=== PATIENT | female | born 1980 | race Caucasian/White ===

== ENCOUNTER 2018-11-04 09:35 | Inpatient (IN) ==
[2018-11-05] MEDS ORDERED: DESYREL PO PRN (10:49)
[2018-11-05] MEDS ORDERED: ZOFRAN ODT PO PRN (10:49)
[2018-11-05] MEDS ORDERED: NICOTINE GUM BUCCAL PRN (10:49)
[2018-11-05] MEDS ORDERED: IMODIUM PO PRN ×2 (10:49)
[2018-11-05] MEDS ORDERED: DULCOLAX PR PRN (10:49)
[2018-11-05] MEDS ORDERED: ZOFRAN IV PRN (10:49)
[2018-11-05] MEDS ORDERED: D5W 1,000 ML IV PRN (10:49)
[2018-11-05] MEDS ORDERED: TUBERSOL ID ONE (10:49)
[2018-11-05] MEDS ORDERED: MAALOX PLUS LIQUID PO PRN (10:49)
[2018-11-05] MEDS ORDERED: PHENOBARBITAL IV PRN (10:49)
[2018-11-05] MEDS ORDERED: ZOFRAN IM PRN (10:49)
[2018-11-05 10:58] LABS: URINE SOURCE CLEAN CATCH
[2018-11-05 11:05] LABS: BILIRUBIN URINE NEGATIVE (NEGATIVE); BLOOD URINE 1+ (NEGATIVE); GLUCOSE URINE NEGATIVE (NEGATIVE); KETONE URINE NEGATIVE (NEGATIVE); LEUKOCYTES URINE TRACE (NEGATIVE); NITRITE URINE NEGATIVE (NEGATIVE); PH URINE 6.5; PROTEIN URINE TRACE mg/dL (NEGATIVE); UROBILINOGEN URINE NORMAL
[2018-11-05 11:06] LABS: CLARITY CLEAR (CLEAR); COLOR YELLOW; URINE BACTERIA 1+ /HFP; URINE CAST NONE SEEN /LPF; URINE CRYSTAL NONE SEEN /HPF; URINE EPITHELIAL CELLS <10 /HPF (<10); URINE RBC <10 /HPF (<10); URINE WBC <10 /HPF (<10); URINE YEAST NONE SEEN /HPF
[2018-11-05 11:13] LABS: UR AMPHETAMINES QUAL PRESUMPTIVE POSITIVE (NONE DETECT); UR BARBITUATES QUAL NONE DETECTED (NONE DETECT); UR BENZODIAZEPIN QUAL NONE DETECTED (NONE DETECT); UR COCAINE QUAL NONE DETECTED (NONE DETECT); UR METHADONE QUAL NONE DETECTED (NONE DETECT); UR METHAMPHETAMINE QUAL PRESUMPTIVE POSITIVE (NONE DETECT); UR OPIATES QUAL PRESUMPTIVE POSITIVE (NONE DETECT); UR OXYCODONE QUAL NONE DETECTED (NONE DETECT); UR PCP QUAL NONE DETECTED (NONE DETECT)
[2018-11-05 11:14] LABS: UR CANNABINOIDS QUAL PRESUMPTIVE POSITIVE (NONE DETECT); UR PROPOXYPHENE QUAL NONE DETECTED (NONE DETECT); UR TCA QUAL NONE DETECTED (NONE DETECT)
[2018-11-05 11:29] LABS: HEMATOCRIT 34.7 % (37.0-47.0); HEMOGLOBIN 11.5 g/dL (12.0-16.0); MCH 29.5 PG (27-31); MCHC 33.1 g/dL (33-37); MPV 8.7 FL (7.4-10.4); RBC 3.9 XMIL (4.2-5.4); RDW 12.7 % (11.5-14.5); WBC 4.7 X1000 (4.8-10.8)
[2018-11-05] MEDS: MOTRIN PO PRN ×2 (11:30→17:06)
[2018-11-05] MEDS: NICODERM PATCH TD PRN (11:30)
[2018-11-05 11:46] LABS: INR 0.98; PROTIME 13.5 Seconds (11.0-16.0)
[2018-11-05 11:50] LABS: AGAP 10; ALBUMIN 3.7 g/dL (3.5-5.0); ALKALINE PHOSPHATASE 50 U/L (32-104); AMYLASE 33 U/L (20-200); BUN 11 mg/dL (8-22); CALCIUM 8.3 mg/dL (8.8-10.2); CHLORIDE 106 mmol/L (98-107); COSMO 280; CREATININE 0.6 mg/dL (0.5-0.9); ESTIMATED GFR > 60; GLUCOSE 112 mg/dL (70-104); GOT 9 U/L (10-30); GPT 7 U/L (10-36); LIPASE 16 U/L (13-60); SODIUM 140 mmol/L (136-145); TCO2 23 mmol/L (25-35); TOTAL BILIRUBIN < 0.15 mg/dL (0.20-1.00)
[2018-11-05] MEDS ORDERED: SINEMET 25/100 PO PRN (12:11)
[2018-11-05] MEDS ORDERED: BENTYL PO PRN (12:11)
[2018-11-05] MEDS: TRILEPTAL PO SCH ×2 (12:41→17:06)
[2018-11-05] MEDS: NEURONTIN PO SCH ×2 (12:41→17:06)
[2018-11-05] MEDS: ATARAX PO PRN (17:06)
[2018-11-05] MEDS: LIBRIUM PO PRN ×2 (17:06→22:38)
[2018-11-05] MEDS: ROBAXIN PO PRN (17:06)
[2018-11-05] MEDS: TYLENOL PO PRN (22:38)
[2018-11-05] MEDS: SEROQUEL PO PRN (22:38)
[2018-11-06] MEDS: LIBRIUM PO PRN (05:13)
[2018-11-06] MEDS: MOTRIN PO PRN ×2 (05:13→11:56)
[2018-11-06] MEDS: PROTONIX PO SCH (06:31)
[2018-11-06] MEDS: SUBOXONE 2 MG/0.5 MG FILM SL SCH ×2 (08:57→19:52)
[2018-11-06] MEDS: THERA M PLUS PO SCH (08:57)
[2018-11-06] MEDS: NEURONTIN PO SCH ×3 (08:57→17:23)
[2018-11-06] MEDS: TRILEPTAL PO SCH ×2 (08:57→12:54)
[2018-11-06] MEDS: VITAMIN B-1 PO SCH (08:57)
[2018-11-06] MEDS: FOLIC ACID PO SCH (08:58)
[2018-11-06] MEDS ORDERED: FLU VACCINE IM ONE (09:00)
[2018-11-06] MEDS: TYLENOL PO PRN ×2 (09:10→17:23)
[2018-11-06] MEDS: ROBAXIN PO PRN ×2 (11:56→17:25)
[2018-11-06] MEDS: NICODERM PATCH TD PRN (12:54)
[2018-11-06] MEDS: SENOKOT PO PRN (21:39)
--- NOTE | 2018-11-06 23:12 | PROGRESS NOTE ---
DATE: 11/06/2018 SUBJECTIVE: The patient notes overall she is feeling a little bit better; however, she has still been sleepy and fatigued. She is unsure why. The patient actually states that she has not taken her seizure medicine since June. OBJECTIVE: Vital signs reviewed. She is awake but somnolent. HEENT: Normocephalic. Neck supple. CV: Regular rate. Chest clear. Abdomen soft. Extremities: Moves all extremities. ASSESSMENT: 1. Increased somnolence, likely secondary to her seizure medication, as she has not been taking on any regular basis since June. 2. Nausea and vomiting. 3. Abdominal pain. 4. [*] stabilization. PLAN: We will continue the patient in the hospital. Continue Suboxone; however, we will hold her seizure medicines as she has not been taking them on any regular basis and it is likely the cause of her drowsiness. cc: Dheeraj Madrigal MD
[2018-11-07] MEDS: MOTRIN PO PRN ×3 (03:22→19:09)
[2018-11-07] MEDS: PROTONIX PO SCH (06:14)
[2018-11-07] MEDS: NEURONTIN PO SCH ×4 (07:55→20:17)
[2018-11-07] MEDS: FOLIC ACID PO SCH ×2 (07:55→08:03)
[2018-11-07] MEDS: THERA M PLUS PO SCH ×2 (07:55→08:03)
[2018-11-07] MEDS: SUBOXONE 2 MG/0.5 MG FILM SL SCH (07:55)
[2018-11-07] MEDS: LIBRIUM PO PRN (07:55)
[2018-11-07] MEDS: VITAMIN B-1 PO SCH ×2 (07:55→11:17)
[2018-11-07] MEDS: ROBAXIN PO PRN (11:18)
[2018-11-07] MEDS: NICODERM PATCH TD PRN (11:51)
[2018-11-07] MEDS: TYLENOL PO PRN (15:04)
[2018-11-07] MEDS: SENOKOT PO PRN (15:08)
[2018-11-07] MEDS: ATARAX PO PRN (19:09)
[2018-11-07] MEDS: SEROQUEL PO PRN (20:57)
[2018-11-07] MEDS: SUBOXONE 8 MG/2 MG FILM SL SCH (20:57)
--- NOTE | 2018-11-07 21:48 | PROGRESS NOTE ---
DATE: 11/07/2018 SUBJECTIVE: Patient notes that she is feeling okay, but is still having some muscle aches. Notes that Suboxone is working, but it is not lasting long enough. PHYSICAL EXAMINATION: Vital Signs: Temperature 98, respiratory rate 18, BP 103/51. General: Patient is in no current respiratory distress. Very pleasant to talk with. HEENT: Normocephalic. Neck: Supple. Cardiovascular: Regular rate. Chest: Clear. Abdomen: Soft. Extremities: Moves all extremities. ASSESSMENT: 1. Nausea/vomiting. 2. Abdominal pain. 3. Myalgias. 4. Paresthesias. 5. Paroxysmal sweating. 6. Opiate abuse, withdrawal, and stabilization. PLAN: At this point, we will increase Suboxone to 8/2, continue counseling, and follow. Hopefully can discharge home over the next day or 2. cc: Dheeraj Madrigal MD
[2018-11-08] MEDS: TYLENOL PO PRN (00:20)
[2018-11-08 02:45] VITALS: BP 110/69
[2018-11-08] MEDS: PROTONIX PO SCH (06:41)
[2018-11-08] MEDS: MOTRIN PO PRN (06:45)
[2018-11-08] MEDS: ROBAXIN PO PRN (06:45)
[2018-11-08] MEDS: SUBOXONE 8 MG/2 MG FILM SL SCH (07:56)
[2018-11-08] MEDS: NEURONTIN PO SCH (07:56)
[2018-11-08] MEDS: THERA M PLUS PO SCH (07:56)
[2018-11-08] MEDS: VITAMIN B-1 PO SCH (07:56)
[2018-11-08] MEDS: FOLIC ACID PO SCH (07:56)
[2018-11-08] MEDS: NICODERM PATCH TD PRN (09:52)
== END 2018-11-08 10:04 | disposition home or self-care (01) | DRG 897 ==
LOC: P.DIRADM 11-05 09:40 → P.MEDSURG 11-05 09:47
PROVIDERS: ADMIT Family Medicine; ATTEND Family Medicine
CPT/HCPCS: 80053; 80104; 80301; 80305; 80307; 80320; 81001; 82055; 82150; 83690; 84703; 85027; 85610; 86580; A9270; G0431; G0434; G0477; G0480; G6040